=== PATIENT | female | born 1965 | race Caucasian/White ===

== ENCOUNTER 2019-12-03 19:15 | Emergency (ER) | payer BC, OTHER ==
--- NOTE | 2019-12-03 19:52 | PDOC ---
History of Present Illness - General Chief Complaint: Injury Stated Complaint: FELL Time Seen by Provider: 12/03/19 19:46 History Source: Patient Exam Limitations: No Limitations - History of Present Illness Initial Comments: 12/03/19 19:59 Assessment and plan: This is a 54-year-old female who tripped and fell while going down stairs. Patient came in complaining of pain to her ribs and her left wrist and leg. On exam patient did have some tenderness over the fourth and fifth ribs laterally, a mild deformity and tenderness over the distal radius and a soft tissue contusion of the lateral calf area. There was no bony tenderness of the knee or lower portion of the leg. X-rays were ordered including chest, ribs, wrist Past History - Past Medical History Allergies/Adverse Reactions: Allergies Allergy/AdvReac Type Severity Reaction Status Date / Time No Known Allergies Allergy Unverified 05/31/13 10:26 Home Medications: Ambulatory Orders Calcium (Oyster Shell) [Elemental Calcium [Nf]] 600 mg PO DAILY tablet Magnesium Oxide [Magnesium] 500 mg PO DAILY capsule 08/24/16 Discharge - Discharge Information Condition: Good - Follow up/Referral Referrals: Daniel Fung MD [Primary Care Provider] - - Patient Discharge Instructions - Post Discharge Activity
[2019-12-03 20:10] VITALS: BP 126/64; PULSE 73; TEMP 98.1; BMI 24.5
--- NOTE | 2019-12-03 21:18 | PDOC ---
Documentation entered by Mayra Weiss SCRIBE, acting as scribe for Urmila Dobbs MD. Urmila Dobbs MD: This documentation has been prepared by the Abhishek barakat Nirvannie, SCRIBE, under my direction and personally reviewed by me in its entirety. I confirm that the documentation accurately reflects all work, treatment, procedures, and medical decision making performed by me. History of Present Illness - General Chief Complaint: Injury Stated Complaint: FELL Time Seen by Provider: 12/03/19 19:46 History Source: Patient Exam Limitations: No Limitations - History of Present Illness Initial Comments: 12/03/19 20:45 HPI: The patient is a 54 year old female with no significant past medical history, who presents to the emergency department s/p mechanical fall with left lateral calf pain, left rib pain, and left wrist pain. As per patient, she was reading a book and walking down the stairs when she fell down the last 3 stairs. She notes immediate onset of pain to the left lower extremity, ribs, and wrist. She denies any loss of consciousness, head/neck trauma, or change in strength/ sensation. She denies recent fevers, chills, headache or dizziness. She denies recent nausea, vomiting, diarrhea or constipation. She denies recent chest pain or shortness of breath. PAST MEDICAL HISTORY: no significant history PAST SURGICAL HISTORY: no significant history FAMILY HISTORY: no pertinent history SOCIAL HISTORY: Pt lives with family and is employed. MEDICATIONS: reviewed ALLERGIES: As per nursing notes ROS: General: No fevers or chills, no weakness, no weight loss HEENT: No change in vision. No sore throat,. No ear pain CardioVascular: No chest pain or shortness of breath Respiratory:No cough, or wheezing. Gastrointestinal: no nausea, vomiting, diarrhea or constipation, No rectal bleeding Genitourinary: No dysuria, hematuria, or frequency Musculoskeletal: +Left lateral leg pain. +Rib pain. +Left wrist pain. Neurologic: No headache, vertigo, dizziness or loss of consciousness Psychiatric: nor depression Skin: No rashes or easy bruising Endocrine: no increased thirst or abnormal weight change Allergic: no skin or latex allergy All other systems reviewed and normal Physical Exam: GENERAL: The patient is awake, alert, and fully oriented, in no acute distress. HEAD: Normal with no signs of trauma. EYES: Pupils equal, round and reactive to light, extraocular movements intact, sclera anicteric, conjunctiva clear. EXTREMITIES: LUE: Tenderness to the distal radius. LLE: Ecchymosis to the upper calf. No bony tenderness to the knee or tib-fib. Neurovascularly intact. ABDOMEN: +Tenderness to palpation to the 4-5th lateral ribs. NEUROLOGICAL: Normal speech, normal gait. PSYCH: Normal mood, normal affect. SKIN: Warm, Dry, normal turgor, no rashes or lesions noted. Assessment and plan: This is a 54-year-old female who tripped and fell while going down stairs. Patient came in complaining of pain to her ribs and her left wrist and leg. On exam patient did have some tenderness over the fourth and fifth ribs laterally, a mild deformity and tenderness over the distal radius and a soft tissue contusion of the lateral calf area. There was no bony tenderness of the knee or lower portion of the leg. X-rays were ordered including chest, ribs, wrist 12/03/19 21:21 X-rays were negative for any acute acute pathology with the exception of the left wrist patient does have an impacted distal radius left wrist fracture. Left wrist was placed in a wrist splint Patient was given Percocet Patient discharged we will follow-up with Dr. Zhou Past History - Past Medical History Allergies/Adverse Reactions: Allergies Allergy/AdvReac Type Severity Reaction Status Date / Time No Known Allergies Allergy Verified 12/03/19 19:59 Home Medications: Ambulatory Orders Calcium (Oyster Shell) [Elemental Calcium [Nf]] 600 mg PO DAILY tablet Magnesium Oxide [Magnesium] 500 mg PO DAILY capsule 08/24/16 Oxycodone HCl/Acetaminophen [Percocet 5-325 mg Tablet] 1 tab PO Q4H PRN #20 tablet MDD 8 12/03/19 COPD: No - Psycho Social/Smoking Cessation Hx Smoking History: Never smoked Hx Alcohol Use: No Drug/Substance Use Hx: No *Physical Exam - Vital Signs Last Vital Signs Temp Pulse Resp BP Pulse Ox 98.1 F 73 18 126/64 99 12/03/19 19:43 12/03/19 19:43 12/03/19 19:43 12/03/19 19:43 12/03/19 19:43 Discharge - Discharge Information Problems reviewed: Yes Clinical Impression/Diagnosis: Contusion of left lower leg Left wrist fracture Qualifiers: Encounter type: initial encounter Fracture type: closed Qualified Code(s): S62.102A - Fracture of unspecified carpal bone, left wrist, initial encounter for closed fracture Contusion of rib on left side Qualifiers: Encounter type: initial encounter Qualified Code(s): S20.212A - Contusion of left front wall of thorax, initial encounter Condition: Good - Admission No - Additional Discharge Information Prescriptions: Oxycodone HCl/Acetaminophen [Percocet 5-325 mg Tablet] 1 tab PO Q4H PRN #20 tablet MDD 8 PRN Reason: Pain - Follow up/Referral Referrals: Daniel Fung MD [Primary Care Provider] - Сергей Zhou MD [Staff Physician] - - Patient Discharge Instructions Patient Printed Discharge Instructions: How to Use a Sling Additional Instructions: Wear the sling while awake For pain take Percocet 1 tablet as often as every 4-6 hours as needed. Follow-up with Dr. Zhou call his office in the morning. Return to the emergency department immediately with ANY new, persistent or worsening symptoms. Continue any medications as previously prescribed by your physician. You should follow up with your primary doctor as soon as possible regarding today's emergency department visit. . Please make sure your doctor reviews the results of your emergency evaluation. Thank you for coming to the Emergency Department today for your care. It was a pleasure to see you today. Please note that your evaluation is INCOMPLETE until you follow-up with your doctor. - Post Discharge Activity
== END 2019-12-03 21:32 | disposition home or self-care (01) ==
LOC: FER 19:15
DX: S80.12XA Contusion of left lower leg, initial encounter (principal); W18.39XA Other fall on same level, initial encounter; Y93.89 Activity, other specified; Y92.89 Other specified places as the place of occurrence of the external cause
CPT/HCPCS: 71046-TC-FY; 71101-TC-LT-FY; 73110-TC-LT-FY; 99283-25

== ENCOUNTER 2020-08-22 13:34 | Day surgery (SDC) | payer OTHER ==
--- OUTSIDE RECORDS SUMMARY | 2020-08-14 15:11 | XMS ---
:1965 Author Organization [facility] Care Team Providers Name Role Phone Jean Elias Unavailable Androne, C Unavailable Androne, C Unavailable Androne, C Unavailable Androne, C Unavailable Androne, C Unavailable Androne, C Unavailable Androne, C Unavailable Androne, C Unavailable GRISELDA ESTEBAN Unavailable Unavailable GRISELDA ESTEBAN Unavailable Unavailable GRISELDA ESTEBAN Unavailable Unavailable GRISELDA ESTEBAN Unavailable Unavailable Re-disclosure Warning The records that you are about to access may contain information from federally- assisted alcohol or drug abuse programs. If such information is present, then the following federally mandated warning applies: This information has been disclosed to you from records protected by federal confidentiality rules (42 CFR part 2). The federal rules prohibit you from making any further disclosure of this information unless further disclosure is expressly permitted by the written consent of the person to whom it pertains or as otherwise permitted by 42 CFR part 2. A general authorization for the release of medical or other information is NOT sufficient for this purpose. The Federal rules restrict any use of the information to criminally investigate or prosecute any alcohol or drug abuse patient.The records that you are about to access may contain highly sensitive health information, the redisclosure of which is protected by Article 27-F of the [facility] Public Health law. If you continue you may haveaccess to information: Regarding HIV / AIDS; Provided by facilities licensed or operated by the [facility] Office of Mental Health; or Provided by the [facility] Office for People With Developmental Disabilities. If such information is present, then the following [facility] mandated warning applies: This information has been disclosed to you from confidential records which are protected by state law. State law prohibits you from making any further disclosure of this information without the specific written consent of the person to whom it pertains, or as otherwise permitted by law. Any unauthorized further disclosure in violation of state law may result in a fine or long term sentence or both. A general authorization for the release of medical or other information is NOT sufficient authorization for further disclosure. Encounters Encounter Providers Location Date Indications Data Source(s ) Attender: Jean 06/23/2020 [facility] ([facility] 12:00:00 AM ED Medical, ) Office Attender: Jean Elias 06/23/2020 12:00:00 AM EDT [facility] ([facility]) Office Outpatient Attender: DANYELL 06/06/2020 12:12:00 PM Z03.818 [facility] Z03.818 Medications Medication Brand Start Product Dose Route Administrative Pharmacy [facility] Indications Reaction Description Data Name Date Form Instructions Instructions Source(s) Biotin 0.3 BIOTIN 12/20/ TABLET 30 complet BIOTI N [facility] (St MG Oral :[id number] 2018 ed [facility] Tablet 3 12:00: Medical, BIOTIN:3087 00 AM PC) 43 EST nabumetone NABUME 12/20/ TABLET 20 complet NABUM ETONE [facility] (St 750 MG Oral TONE:3 2019 ed [facility] Tablet 69234 12:00: Medical, NABUMETONE: 00 AM PC) [id number] EST CITRACAL + 12/20/ TABLET, 30 complet CITRAC AL + D [facility] (St D:[id number] CHEWABLE ed [facility] 12:00: Medical, 00 AM PC) EST Insurance Providers Payer name Policy type Policy ID Covered Covered constitution party's Policy P daniela / Coverage constitution party ID relationship to Christy Inf ormation type christy AETNA [id number] 1 [id number] EMPIRE [id number] BC/BS 56 AETNA HMO [id number] S [id number] AETNA POS [id number] SP [id number] BC OUT OF [id number] SP [id number] STATE 56 BC OUT OF [id number] SP [id number] STATE 56 Problems, Conditions, and Diagnoses Code Display Name Description Problem Type Effective Dates Data Source(s) Z11.1 Encounter for ENCOUNTER FOR Problem 06/23/2020 [facility] ( St screening for SCREENING FOR 12:00:00 AM EDT [facility] respiratory RESPIRATORY Medical, ) tuberculosis TUBERCULOSIS Z02.1 Encounter for ENCOUNTER FOR Problem 06/23/2020 [facility] ( St pre-employment PRE-EMPLOYMENT 12:00:00 AM EDT Kristian walter examination EXAMINATION Medical, ) M70.62 Trochanteric TROCHANTERIC Problem 10/26/2019 [facility] (St bursitis, left hip BURSITIS, LEFT HIP 12:00:00 AM [facility], ) R51 Headache HEADACHE Problem 08/10/2019 [facility] (St 12:00:00 AM [facility], ) Surgeries/Procedures Procedure Description Date Indications Data Source(s) Documentation of current 06/23/2020 [facility] ([facility] medications (procedure) 12:00:00 AM EDT Blake hubbard, ) OFFICE OUTPATIENT VISIT 06/23/2020 [facility] ([facility] 25 MINUTES 12:00:00 AM [facility], ) Documentation of current 10/26/2019 [facility] ([facility] (procedure) 12:00:00 AM [facility] Documentation of current 10/26/2019 [facility] ([facility] medications (procedure) 12:00:00 AM [facility], ) Documentation of current 10/26/2019 [facility] ([facility] medications (procedure) 12:00:00 AM [facility]dee, ) ECG ROUTINE ECG W/LEAST 10/26/2019 [facility] ([facility] 12 LDS W/I&R 12:00:00 AM [facility], ) Documentation of current 08/10/2019 [facility] ([facility] medications (procedure) 12:00:00 AM EDT Blake hubbard, ) Documentation of current 08/10/2019 [facility] ([facility] (procedure) 12:00:00 AM EDT Blake hubbard, ) OFFICE OUTPATIENT VISIT 08/10/2019 [facility] ([facility] 15 MINUTES 12:00:00 AM EDT Medical, ) Results ID Date Data Source [id number] 07/31/2020 10:44:00 AM EDT [facility] Name Value Range Interpretation Description Data Sup porting Code Source(s) Document(s ) 2018 Novel [facility] Coronavirus RNA Interpretation Unspecified Specimen Qualitative HERBER Probe Detection This lab was ordered by [id number] and reported by [facility]. Procedure Social History Code Duration Value Status Description Data Source(s ) Smoking 07/07/2020 Marital Status completed Marital Status [facility] (St 12:00:[address] 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 Social Tobacco Status: Former smoker (Social) Tobacco details: Cigarettes Smoking Stop Date: 30 years ago Smoking 07/07/2020 Former smoker completed Former smoker [facility] ( St 12:00:00 AM [facility], EDT ) Vital Signs ID Date Data Source UNK Name Value Range Interpretation Code Description Data Source(s) Heart rate 82 /min 82 /min [facility] ([facility] , ) Respiratory rate 15 /min 15 /min [facility] ( [facility] , ) Body mass index 26.5 kg/m2 26.5 kg/m2 [facility] (S t (BMI) [Ratio] [facility], ) Diastolic blood 70 mm[Hg] 70 mm[Hg] [facility] (S t pressure [facility] , ) Systolic blood 116 mm[Hg] 116 mm[Hg] [facility] (St pressure [facility] , ) Body weight 164 lb 164 lb [facility] ([facility]) Body height 66 in 66 in [facility] ([facility]) Heart rate 70 /min 70 /min [facility] ([facility] , ) Respiratory rate 14 /min 14 /min [facility] ( [facility] , ) Body temperature 98 F 98 F [facility] ( [facility]) Inhaled oxygen 97 % 97 % [facility] ([facility], ) Body mass index 24.7 kg/m2 24.7 kg/m2 [facility] (S t (BMI) [Ratio] [facility], ) Diastolic blood 60 mm[Hg] 60 mm[Hg] [facility] (S t pressure [facility] , ) Systolic blood 110 mm[Hg] 110 mm[Hg] [facility] ([facility] , ) Body weight 153 lb 153 lb [facility] ([facility]) Body height 66 in 66 in [facility] ([facility]) Heart rate 69 /min 69 /min [facility] ([facility]) Respiratory rate 14 /min 14 /min [facility] ( [facility]) Body temperature 98.2 F 98.2 F [facility] ( [facility]) Inhaled oxygen 97 % 97 % [facility] ([facility], ) Body mass index 24.3 kg/m2 24.3 kg/m2 [facility] (S t (BMI) [Ratio] [facility], ) Diastolic blood 63 mm[Hg] 63 mm[Hg] [facility] (S t pressure [facility] , ) Systolic blood 112 mm[Hg] 112 mm[Hg] [facility] ([facility] , ) Body weight 153 lb 153 lb [facility] ([facility]) Body height 66.5 in 66.5 in [facility] ([facility])
[2020-08-21 12:37] VITALS: BMI 24.1
--- OUTSIDE RECORDS SUMMARY | 2020-08-22 13:41 | XMS ---
:1965 Author Organization [facility] Care Team Providers Name Role Phone Jean [...] is protected by Article 27-F of the [facility] Public Health law. If you continue you may haveaccess to information: Regarding HIV / AIDS; Provided by facilities licensed or operated by the [facility] Office of Mental Health; or Provided by the [facility] Office for People With Developmental Disabilities. If such information is present, then the following [facility] mandated warning applies: This information has [...] law may result in a fine or assisted sentence or both. A general authorization for the release of medical or other information is NOT sufficient authorization for further disclosure. Encounters Encounter Providers Location Date Indications Data Source(s ) Attender: Jean 08/21/2020 [facility] ([facility] [place] 12:00:00 AM [facility] Medical, ) Office Attender: Jean Elias 08/21/2020 12:00:00 AM EDT MED[facility] ([facility], ) Office Attender: Jean Elias 06/23/2020 12:00:00 AM EDT MED[facility] ([facility], ) Office Attender: Jean Elias 06/23/2020 12:00:00 AM EDT MED[facility] ([facility], ) Office Outpatient Attender: DANYELL 06/06/2020 12:12:00 PM Z03.818 [facility] Z03.818 Medications Medication Brand Start Product Dose Route Administrative Pharmacy [facility] Indications Reaction Description Data Name Date Form Instructions Instructions Source(s) Biotin 0.3 BIOTIN 12/20/ TABLET 30 complet BIOTI N MEDGEN (St MG Oral :2018 ed [facility] Tablet 3 12:00: Medical, BIOTIN:3087 00 AM PC) 43 EST Biotin 0.3 BIOTIN 12/20/ TABLET 30 complet BIOTI N MED[facility] (St MG Oral :2018 ed [facility] Tablet 3 12:00: Medical, BIOTIN:3087 00 AM PC) 43 EST nabumetone NABUME 12/20/ TABLET 20 complet NABUM ETONE MEDGEN (St 750 MG Oral TONE:3 2018 ed [facility] Tablet 84154 12:00: Medical, NABUMETONE: 00 AM PC) [id number] EST CITRACAL + 12/20/ TABLET, 30 complet CITRAC AL + D MEDGEN (St D:[id number] CHEWABLE ed [facility] 12:00: Medical, 00 AM PC) EST CITRACAL + 12/20/ TABLET, 30 complet CITRAC AL + D MEDGEN (St D:[id number] CHEWABLE ed [facility] 12:00: Medical, 00 AM PC) EST nabumetone NABUME 12/20/ TABLET 20 complet NABUM ETONE MEDGEN (St 750 MG Oral TONE:3 2018 ed [facility] Tablet 26667 12:00: Medical, NABUMETONE: 00 AM PC) [id number] EST Insurance Providers Payer name Policy type Policy ID Covered Covered republican's Policy P daniela / Coverage republican ID relationship to Christy Inf ormation type christy AETNA HMO [id number] S [id number] AETNA [id number] EMPIRE [id number] BC/BS 56 AETNA POS [id number] SP [id number] BC OUT OF [id number] SP [id number] STATE 56 BC OUT OF [id number] SP [id number] STATE 56 Problems, Conditions, and Diagnoses Code Display Name Description Problem Type Effective Data Sour ce(s) Dates R22.42 Localized swelling, LOCALIZED Problem 08/21/2020 MEDGE N (St mass and lump, left SWELLING, MASS AND 12:00:00 AM [facility] lower limb LUMP, LEFT LOWER EDT Medical, PC) LIMB Z01.818 Encounter for other ENCOUNTER FOR Problem 08/21/2020 ME DGEN (St preprocedural OTHER 12:00:00 AM [facility] examination PREPROCEDURAL EDT Medical, P C) EXAMINATION Z11.1 Encounter for ENCOUNTER FOR Problem 06/23/2020 MEDGEN ( St screening for SCREENING FOR 12:00:00 AM [facility] respiratory RESPIRATORY EDT Medical, PC) tuberculosis TUBERCULOSIS Z02.1 Encounter for ENCOUNTER FOR Problem 06/23/2020 MEDGEN ( St pre-employment PRE-EMPLOYMENT 12:00:00 AM [facility] examination EXAMINATION [facility], ) Z11.1 Encounter for ENCOUNTER FOR Problem 06/23/2020 MEDGEN ( St screening for SCREENING FOR 12:00:[address] [facility] respiratory RESPIRATORY [facility], ) tuberculosis TUBERCULOSIS Z02.1 Encounter for ENCOUNTER FOR Problem 06/23/2020 MEDGEN ( St pre-employment PRE-EMPLOYMENT 12:00:00 AM [facility] examination EXAMINATION [facility], ) M70.62 Trochanteric TROCHANTERIC Problem 10/26/2019 MEDGEN (St bursitis, left hip BURSITIS, LEFT HIP 12:00:[address] [facility], ) M70.62 Trochanteric TROCHANTERIC Problem 10/26/2019 MEDGEN (St bursitis, left hip BURSITIS, LEFT HIP 12:00:00 AM [facility], ) R51 Headache HEADACHE Problem 08/10/2019 MEDGEN (St 12:00:00 AM [facility] R51 Headache HEADACHE Problem 08/10/2019 MEDGEN (St 12:00:00 AM [facility], ) Surgeries/Procedures Procedure Description Date Indications Data Source(s) Documentation of current 08/21/2020 MED GEN ([facility] medications (procedure) 12:00:00 AM EDT [facility], ) Documentation of current 08/21/2020 MED GEN ([facility] medications (procedure) 12:00:00 AM EDT [facility], ) OFFICE OUTPATIENT VISIT 08/21/2020 MEDG EN ([facility] 25 MINUTES 12:00:00 AM [facility], ) Documentation of current 06/23/2020 MED GEN ([facility] medications (procedure) 12:00:00 AM EDT [facility], ) OFFICE OUTPATIENT VISIT 06/23/2020 MEDG EN ([facility] 25 MINUTES 12:00:00 AM [facility], ) Documentation of current 06/23/2020 MED GEN ([facility] medications (procedure) 12:00:00 AM EDT [facility], ) OFFICE OUTPATIENT VISIT 06/23/2020 MEDG EN ([facility] 25 MINUTES 12:00:00 AM [facility], ) Documentation of current 10/26/2019 MED GEN ([facility] medications (procedure) 12:00:00 AM EST [facility], ) Documentation of current 10/26/2019 MED GEN ([facility] medications (procedure) 12:00:00 AM EST [facility], ) Documentation of current 10/26/2019 MED GEN ([facility] medications (procedure) 12:00:00 AM [facility], ) ECG ROUTINE ECG W/LEAST 10/26/2019 MEDG EN ([facility] 12 LDS W/I&R 12:00:00 AM [facility], ) Documentation of current 10/26/2019 MED GEN ([facility] medications (procedure) 12:00:00 AM [facility], ) Documentation of current 10/26/2019 MED GEN ([facility] medications (procedure) 12:00:00 AM [facility], ) Documentation of current 10/26/2019 MED GEN ([facility] medications (procedure) 12:00:00 AM [facility], ) ECG ROUTINE ECG W/LEAST 10/26/2019 MEDG EN ([facility] 12 LDS W/I&R 12:00:00 AM [facility], ) Documentation of current 08/10/2019 MED GEN ([facility] medications (procedure) 12:00:00 AM [facility], ) Documentation of current 08/10/2019 MED GEN ([facility] medications (procedure) 12:00:00 AM [facility], ) OFFICE OUTPATIENT VISIT 08/10/2019 MEDG EN ([facility] 15 MINUTES 12:00:00 AM [facility], ) Documentation of current 08/10/2019 MED GEN ([facility] medications (procedure) 12:00:00 AM [facility], ) Documentation of current 08/10/2019 MED GEN ([facility] medications (procedure) 12:00:00 AM [facility], ) OFFICE OUTPATIENT VISIT 08/10/2019 MEDG EN ([facility] 15 MINUTES 12:00:00 AM [facility], ) Results ID Date Data Source [id number] 08/19/2020 05:30:00 PM EDT [facility] Name Value Range Interpretation Description Data Sup porting Code Source(s) Document(s ) SARS [facility] coronavirus 2 RNA This lab was ordered by [facility] and reported by [facility]. ID Date Data Source [id number] 07/31/2020 10:44:00 AM EDT [facility] Name Value Range Interpretation Description Data Sup porting Code Source(s) Document(s ) 2019 Novel [facility] Coronavirus RNA Interpretation Unspecified Specimen Qualitative HERBER Probe Detection This lab was ordered by [id number] and reported by [facility]. 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 [...] Smoking Stop Date: 30 years ago Smoking 08/21/2020 Former smoker completed Former smoker [facility] ( St 12:00:00 AM [facility] PC) Smoking 07/07/2020 Marital Status completed Marital Status MED[facility] (St 12:00:00 AM Household Household Josiah Alvarez, EDT Members 4 Lives Members 4 Lives PC) Independently Yes Independently Yes Number of Children Number of Childre n 2 boys 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 , ) Heart rate 82 /min 82 /min [facility] ([facility] , ) Respiratory rate 15 /min 15 /min [facility] ( [facility]) Body mass index 26.5 kg/m2 26.5 kg/m2 [facility] (S t (BMI) [Ratio] [facility]) Diastolic blood 70 mm[Hg] 70 mm[Hg] MED[facility] (S t pressure [facility]) Systolic blood 116 mm[Hg] 116 mm[Hg] MEDGEN (St [facility]) Body weight 164 lb 164 lb [facility] ([facility]) Body height 66 in 66 in [facility] ([facility]) Heart rate 82 /min 82 /min [facility] ([facility]) Respiratory rate 15 /min 15 /min [facility] ( [facility]) Body mass index 26.5 kg/m2 26.5 kg/m2 MED[facility] (S t (BMI) [Ratio] [facility]) Diastolic blood 70 mm[Hg] 70 mm[Hg] MEDGEN (S t pressure [facility]) Systolic blood 116 mm[Hg] 116 mm[Hg] MED[facility] (St [facility]) Body weight 164 lb 164 lb [facility] ([facility]) Body height 66 in 66 in [facility] ([facility]) Heart rate 70 /min 70 /min [facility] ([facility]) Respiratory rate 14 /min 14 /min MED[facility] ( [facility]) Body temperature 98 F 98 F MED[facility] ( [facility]) Inhaled oxygen 97 % 97 % MEDGEN ([facility], ) Body mass index 24.7 kg/m2 24.7 kg/m2 MEDGEN (S t (BMI) [Ratio] [facility], ) Diastolic blood 60 mm[Hg] 60 mm[Hg] MEDGEN (S t pressure [facility] , ) Systolic blood 110 mm[Hg] 110 mm[Hg] MEDGEN (St [facility] , ) Body weight 153 lb 153 lb MED[facility] ([facility]) Body height 66 in 66 in [facility] ([facility]) Heart rate 70 /min 70 /min [facility] ([facility]) Respiratory rate 14 /min 14 /min MED[facility] ( [facility]) Body temperature 98 F 98 F MED[facility] ( [facility]) Inhaled oxygen 97 % 97 % MEDGEN ([facility], ) Body mass index 24.7 kg/m2 24.7 kg/m2 MED[facility] (S t (BMI) [Ratio] [facility] Diastolic blood 60 mm[Hg] 60 mm[Hg] MEDGEN (S t pressure [facility] , ) Systolic blood 110 mm[Hg] 110 mm[Hg] MEDGEN ([facility] , ) Body weight 153 lb 153 lb MED[facility] ([facility]) Body height 66 in 66 in MED[facility] ([facility]) Heart rate 69 /min 69 /min MEDGEN ([facility]) Respiratory rate 14 /min 14 /min MEDGEN ( [facility]) Body temperature 98.2 F 98.2 F MED[facility] ( [facility]) Inhaled oxygen 97 % 97 % MEDGEN ([facility], ) Body mass index 24.3 kg/m2 24.3 kg/m2 MEDGEN (S t (BMI) [Ratio] [facility], ) Diastolic blood 63 mm[Hg] 63 mm[Hg] MEDGEN (S t pressure [facility] , ) Systolic blood 112 mm[Hg] 112 mm[Hg] MEDGEN (St [facility] , ) Body weight 153 lb 153 [...] [place]) Inhaled oxygen 97 % 97 % [facility] ([facility]) Body mass index 24.3 kg/m2 24.3 kg/m2 [facility] (S (BMI) [Ratio] [facility]) Diastolic blood 63 mm[Hg] 63 mm[Hg] [facility] (S t [facility]) Systolic blood 112 mm[Hg] 112 mm[Hg] [facility] Body weight 153 lb 153 lb [facility] ([facility]) Body height 66.5 in 66.5 in [facility] ([facility])
[2020-08-22] MEDS ORDERED: BUPIVACAINE HCL/PF 0.5% (5MG/ML) 10 ML VIAL ONE (14:27)
[2020-08-22] MEDS ORDERED: LIDOCAINE HCL 1%, 10 MG/ML (20ML VIAL) ONE (14:27)
[2020-08-22] MEDS ORDERED: LIDOCAINE HCL 1%, 10 MG/ML (50 mL VIAL) NR ONE (14:33)
[2020-08-22] MEDS ORDERED: BUPIVACAINE HCL/PF 0.5% (5MG/ML) 10 ML VIAL NR ONE (14:33)
[2020-08-22 16:00] VITALS: BP 114/70; PULSE 60; TEMP 97.8
--- NOTE | 2020-08-22 16:37 | OP ---
DATE OF OPERATION: 08/22/2020 SURGEON: Rodrick Dias DPM. PREOPERATIVE DIAGNOSIS: Fibroma second digit left foot. POSTOPERATIVE DIAGNOSIS: Fibroma second digit left foot. PROCEDURE: Excision of soft tissue mass left second digit. ANESTHESIA: 6 mL 1% lidocaine and 0.5% Marcaine mixed. DESCRIPTION OF PROCEDURE: After noting all vital signs to be stable, the patient was brought to the operating room and placed on the table in the supine position. Local anesthesia was administered to the left 2nd ray using 1% lidocaine and 0.5% Marcaine mixed. An ankle tourniquet was applied to the left ankle. The left foot was prepped and draped in the usual sterile fashion. Attention was directed to the left 2nd digit where a 2-cm linear incision was created on the dorsal aspect. The incision was deepened through subcutaneous tissue. A hard fibrous nodular lesion approximately 5 mm in diameter was noted in the medial aspect of the 2nd digit at the proximal phalanx area. The nodule was dissected from the soft tissue. No vascular attachment was noted. The site was flushed with copious amounts of sterile saline. The skin was reapproximated with simple interrupted sutures using 4-0 Prolene. The patient tolerated the procedure well with no complications and was transferred to the recovery room with vital signs stable. RODRICK DIAS DPM [id number]
--- NOTE | 2020-08-27 15:44 | PATH ---
Surgical Pathology Report Patient Name: DARLING KRAMER [facility]. Rec. 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 SEE COMMENT. Comment: The biopsy shows a bland spindle cell neoplastic proliferation. No necrosis or mitosis identified. Immun[facility]ochemical stains [facility] [place], [place] ([id number]) and interpreted at [facility] show the neoplasm is positive for vimentin, SMA and desmin; while negative for CD99, CD34, and beta-catenin. S100 shows weak non-specific staining. Trichrome stain utilized to evaluate this case. Suggest clinical correlation. Positive and negative controls (internal if applicable) show appropriate results. Electronically Signed Dianne Cerda M.D. Gross Description Received in formalin labeled "left second toe fibroma," is a 0.5 x 0.4 x 0.4 cm alexander, firm tissue mass. The specimen is bisected and entirely submitted in one cassette. 08/25/2020 [facility]08/25/2020
== END 2020-08-22 15:50 | disposition home or self-care (01) ==
LOC: FASU 13:34
PROVIDERS: ATTEND Podiatrist Foot & Ankle Surgery
PROC: 0JBR0ZZ Excision of Left Foot Subcutaneous Tissue and Fascia, Open Approach (ICD-10-PCS; principal; 2020-08-22 14:30)
DX: D21.22 Benign neoplasm of connective and other soft tissue of left lower limb, including hip (principal)
CPT/HCPCS: 88305-TC; 88313-TC

== ENCOUNTER 2021-08-24 08:06 | Day surgery (SDC) | payer BC ==
[2021-08-21 08:32] VITALS: BMI 24.1
[2021-08-24 08:23] VITALS: TEMP 97.7
[2021-08-24 09:52] VITALS: BP 120/74; PULSE 72
== END 2021-08-24 09:52 | disposition home or self-care (01) ==
LOC: FASU-ENDO 08:06
PROVIDERS: ATTEND Internal Medicine Gastroenterology
PROC: 0DJD8ZZ Inspection of Lower Intestinal Tract, Via Natural or Artificial Opening Endoscopic (ICD-10-PCS; principal; 2021-08-24 09:10)
DX: Z12.11 Encounter for screening for malignant neoplasm of colon (principal)

== ENCOUNTER 2022-04-29 07:12 | Day surgery (SDC) | payer OTHER ==
[2022-04-27 15:41] VITALS: BMI 22.8
[2022-04-29] MEDS ORDERED: LIDOCAINE HCL/PF 2% SDV 5ML VIAL ONE ×2 (08:01→08:02)
[2022-04-29] MEDS ORDERED: PROPOFOL 20 ML ONE ×4 (08:01→08:02)
[2022-04-29 09:02] VITALS: PULSE 64; TEMP 97.1
[2022-04-29 11:13] VITALS: BP 119/60
== END 2022-04-29 09:30 | disposition home or self-care (01) ==
LOC: FASU-ENDO 07:12
PROVIDERS: ATTEND Internal Medicine Gastroenterology
PROC: 0DBN8ZX Excision of Sigmoid Colon, Via Natural or Artificial Opening Endoscopic, Diagnostic (ICD-10-PCS; principal; 2022-04-29 08:17)
DX: Z12.11 Encounter for screening for malignant neoplasm of colon (principal); K63.89 Other specified diseases of intestine
CPT/HCPCS: 88305-TC